=== PATIENT | female | born 1940 | race Caucasian/White ===

== ENCOUNTER 2016-11-09 17:20 | Inpatient (IN) | payer MEDICARE ==
[~2016-11-09] VITALS: Ht 167.6 cm; Wt 96.0 kg
[2016-11-09 18:36] LABS: BASOPHILS 0.2 % (0-2); EOSINOPHILS 1.6 % (0-7); HEMATOCRIT 36.2 % (36.0-48.0); HEMOGLOBIN 10.8 g/dL (12-16); IMMATURE GRANULOCYTES 0.3 % (0-5); LYMPHOCYTES 14.1 % (15-50); MCH 28.6 pg (26.0-34.0); MCHC 29.8 g/dL (31.0-37.0); MCV 95.8 fL (80.0-100.0); MEAN PLATELET VOLUME 11.4 fL (7.4-10.4); MONOCYTES 9.5 % (2-11); NEUTROPHILS 74.3 % (40-80); PLATELET COUNT 150 10x3/uL (130-400); RBC 3.78 10x6/uL (4.00-5.40); RDW 23.1 % (11.5-14.5); WBC 6.1 10x3/uL (4.8-10.8)
[2016-11-09 18:57] LABS: ALBUMIN 3.1 g/dL (3.4-5.0); ALKALINE PHOSPHATASE 154 U/L (46-116); ALT (SGPT) 15 U/L (10-68); BILIRUBIN - TOTAL 1.07 mg/dL (0.2-1.3); CALC OSMOLALITY 279 mosm/kg (275-300); CALCIUM 8.3 mg/dL (8.5-10.1); CARBON DIOXIDE 30.6 mmol/L (21.0-32.0); CHLORIDE - SERUM 101 mmol/L (98-107); CREATININE - SERUM 1.2 mg/dL (0.6-1.3); GLUCOSE 123 mg/dL (74-106); POTASSIUM - SERUM 3.6 mmol/L (3.5-5.1); PROTEIN - SERUM 7.6 g/dL (6.4-8.2); SODIUM 140 mmol/L (136-145); UREA NITROGEN 13 mg/dL (7-18); eGFR NON AFRICAN AMERICAN 46 mL/min (90-120)
[2016-11-09 19:11] LABS: CKMB 0.4 U/L (0.0-3.6); PRO BNP 6376 pg/mL (0-125)
[2016-11-09 19:15] LABS: TROPONIN-I < 0.017 ng/mL (0.000-0.060)
[2016-11-09 19:20] LABS: APPEARANCE CLEAR (CLEAR); BILIRUBIN NEGATIVE (NEGATIVE); COLOR YELLOW (YELLOW); GLUCOSE NEGATIVE (NEGATIVE); KETONE NEGATIVE (NEGATIVE); LEUKOCYTE ESTERASE NEGATIVE (NEGATIVE); NITRITE NEGATIVE (NEGATIVE); PROTEIN TRACE mg/dL (NEGATIVE); SPECIFIC GRAVITY 1.015 (1.005-1.020); UROBILINOGEN NORMAL (NORMAL)
[2016-11-09 19:28] LABS: APTT 34.7 SECONDS (22.8-39.4); INR 1.2 (0.85-1.17); PROTIME 15.1 SECONDS (11.6-15.0)
[2016-11-09 21:00] VITALS: BP 130/88
--- NOTE | 2016-11-09 21:05 | NUR ---
Received patient from ER via stretcher to 230. Patient connected to monitors and Dr Montana notified of arrival per his request. Initial assessment and history completed, denies pain or other needs at this time. All VSS and will continue to monitor.
[2016-11-09 21:20] VITALS: BP 133/82; BMI 37.2
[2016-11-09 21:30] VITALS: BP 133/82
[2016-11-09 22:00] VITALS: BP 131/80
[2016-11-09 23:00] VITALS: BP 133/82
--- NOTE | 2016-11-09 23:00 | NUR ---
Reassessment completed per flowsheet, patient resting in bed with eyes closed. Patient AO x4, poor historian but calm and cooperative. Eyes PERRLA @ 4mm with brisk response, patient wears glasses. Oral/Nasal mucosa is moist and intact, upper dentures noted. S1/S2 noted Controlled Afib on telemetry with HR 90, irregular. Breathing is shallow on 2L via NC, expiratory wheeze bilateral upper and mid with diminished lower. Bowel sounds active x4, abdomen is round and soft. Davis secured in place, clear yellow urine noted in collection. Slight weakness noted all extremities, all pulses palpable with cap refill <3 sec. 20g PIV L wrist/22g PIV R hand, dressing CDI with fluids infusing. Bruises noted bilateral arms/upper chest, skin tear noted R wrist. Patient denies pain or other needs at this time, all VSS and will continue to monitor.
[2016-11-09 23:30] VITALS: BP 129/70
[2016-11-10] VITALS (17 sets, daily range): BP systolic 99–142; BP diastolic 44–94; Ht 167.6 cm; Wt 96.0 kg
--- NOTE | 2016-11-10 01:00 | NUR ---
Patient resting in bed with eyes closed, breathing is slightly shallow on 2L via NC. Controlled afib on telemetry, no c/o chest pain or burning. No further needs at this time, all VSS and will continue to monitor.
[2016-11-10 01:43] LABS: APPEARANCE CLEAR (CLEAR); BILIRUBIN NEGATIVE (NEGATIVE); COLOR YELLOW (YELLOW); GLUCOSE NEGATIVE (NEGATIVE); KETONE NEGATIVE (NEGATIVE); LEUKOCYTE ESTERASE NEGATIVE (NEGATIVE); NITRITE NEGATIVE (NEGATIVE); PH 5.5 (5.0-6.0); PROTEIN NEGATIVE (NEGATIVE); UROBILINOGEN NORMAL (NORMAL)
[2016-11-10 01:51] LABS: AMORPHOUS SEDIMENT <1+ /lpf (NONE SEEN); BACTERIA FEW /hpf (NONE SEEN); EPITHELIAL CELLS OCC /hpf (0-5); HYALINE CAST OCC /lpf (NONE SEEN); RED CELLS - URINE 0-5 /hpf (0-5); WHITE CELLS - URINE OCC /hpf (0-5)
--- NOTE | 2016-11-10 03:00 | NUR ---
Reassessment completed per flowsheet, patient resting in bed with eyes closed. S1/S2 noted Controlled Afib on telemetry with HR 94, rhytmic and regular. Breathing is slightly shallow on 2L via NC, O2 sat 91%. All pulses palpable with cap refill <3 sec. No further needs at this time, all VSS and will continue to monitor.
[2016-11-10 03:44] LABS: BASOPHILS 0.2 % (0-2); EOSINOPHILS 1.2 % (0-7); HEMATOCRIT 32.9 % (36.0-48.0); HEMOGLOBIN 9.8 g/dL (12-16); IMMATURE GRANULOCYTES 0.2 % (0-5); LYMPHOCYTES 11.6 % (15-50); MCHC 29.8 g/dL (31.0-37.0); MCV 97.3 fL (80.0-100.0); MEAN PLATELET VOLUME 11.4 fL (7.4-10.4); MONOCYTES 10.6 % (2-11); NEUTROPHILS 76.2 % (40-80); PLATELET COUNT 153 10x3/uL (130-400); RBC 3.38 10x6/uL (4.00-5.40); RDW 23.2 % (11.5-14.5); WBC 5.9 10x3/uL (4.8-10.8)
[2016-11-10 03:53] LABS: HEMOGLOBIN A1C 6.1 % (4.8-6.0)
[2016-11-10 04:00] LABS: % SATURATION 11 % (15-55); IRON 41 ug/dl (35-150); TOTAL IRON BIND CAPACITY 355 ug/dl (260-445); UNSAT IRON BIND CAPACITY 314 ug/dl (150-375)
[2016-11-10 04:17] LABS: ALBUMIN 2.7 g/dL (3.4-5.0); ALKALINE PHOSPHATASE 126 U/L (46-116); ALT (SGPT) 17 U/L (10-68); CALC OSMOLALITY 280 mosm/kg (275-300); CALCIUM 7.9 mg/dL (8.5-10.1); CARBON DIOXIDE 36.3 mmol/L (21.0-32.0); CHLORIDE - SERUM 99 mmol/L (98-107); CHOL - HDL RATIO 3.3 ratio (2.3-4.1); CHOLESTEROL, TOTAL 130 mg/dL (0-200); FERRITIN 65 ng/mL (3-244); GLUCOSE 116 mg/dL (74-106); HDL CHOLESTEROL 39 mg/dL (32-96); LDL CHOLESTEROL 81 mg/dL (0-100); LDL-HDL RATIO 2.1 ratio (1.5-3.5); PRO BNP 6616 pg/mL (0-125); PROTEIN - SERUM 7.1 g/dL (6.4-8.2); SODIUM 141 mmol/L (136-145); THYROID STIMULATING HORMONE 5.13 uIU/mL (0.36-3.74); TRIGLYCERIDE 52 mg/dL (30-200); TROPONIN-I < 0.017 ng/mL (0.000-0.060); UREA NITROGEN 10 mg/dL (7-18); eGFR NON AFRICAN AMERICAN 57 mL/min (90-120)
[2016-11-10 04:19] LABS: POTASSIUM - SERUM 3.7 mmol/L (3.5-5.1)
--- NOTE | 2016-11-10 05:00 | NUR ---
Patient resting in bed with eyes closed, breathing remains slightly shallow on 2L via NC. Expiratory wheeze noted with diminished lower, O2 sat 91%. No further needs at this time, all VSS and will continue to monitor.
[2016-11-10] MEDS ORDERED: ASPIRIN EC81 M1 (06:40)
[2016-11-10] MEDS ORDERED: ELIQUIS2.5 MG (06:40)
[2016-11-10] MEDS ORDERED: FUROSEMIDE40 MG (06:41)
[2016-11-10] MEDS ORDERED: PLAVIX75 MG (06:41)
[2016-11-10] MEDS ORDERED: LEVOTHYROXINE150 MCG (06:41)
[2016-11-10] MEDS ORDERED: FERROUS SULFAT325 MG PO (06:42)
[2016-11-10] MEDS ORDERED: CARDURA4 MG PO (06:43)
[2016-11-10] MEDS ORDERED: TOPROL XL100 MG PO (06:43)
[2016-11-10] MEDS ORDERED: OMEPRAZOLE20 M1 PO (06:43)
[2016-11-10] MEDS ORDERED: CALAN SR240 MG PO (06:44)
[2016-11-10] MEDS ORDERED: ULTRAM50 MG PO (06:45)
[2016-11-10] MEDS ORDERED: LEVOTHYROXINE175 MCG PO (06:45)
[2016-11-10] MEDS ORDERED: PAXIL20 MG PO (06:45)
[2016-11-10] MEDS ORDERED: K-TAB10 MEQ PO (06:46)
[2016-11-10] MEDS ORDERED: LOTRISONE CREAM45 GM (06:46)
[2016-11-10] MEDS ORDERED: NAPROSYN500 MG PO (06:46)
--- NOTE | 2016-11-10 07:00 | NUR ---
PT AWAKE ALERT AND ORIENTED X4. PT OBEYS COMMANDS AND PRESENTS NO DEFICITS. DR LIRA CALLED AND DC SCDS DUE TO CELLULITS. 40 LOVENOX ORDERED. COMPLETE SHIFT ASSESSMENT DOCUMENTED PER FLOWSHEET. PT DENIES PAIN AT THIS TIME. EXPIRATORY WHEEZING NOTED IN UPPER LOBES BILAT AND RT MIDDLE LOBE, DIMINISHED IN LOWER LOBES BILAT. DRY CRACKING AND REDNESS NOTED IN BILAT LOWER EXTREMITIES, WARM TO TOUCH. WILL CONTINUE TO MONITOR CLOSELY
--- NOTE | 2016-11-10 09:00 | NUR ---
MANJIT WEBSTER APRN SAW PT AND RESUMED HOME MEDICATIONS FROM MED REC FOR AFIB. PER ORDER WILL DC CARDIZEM DRIP 2 HOURS AFTER PO MEDS GIVEN. WILL DC DRIP AND PT MAY BE TRANSFERRED TO PCU AFTER DRIP IS OFF AND PT IS STABLE.
--- NOTE | 2016-11-10 11:00 | NUR ---
PT COMPLAINS THAT SHE IS HOT. TEMP ADJUSTED IN ROOM. DENIES ANY FURTHER NEEDS AT THIS TIME. WILL CONTINUE TO MONTIOR PT CLOSELY.
--- NOTE | 2016-11-10 13:00 | NUR ---
PT COMPLAINING OF MILD LEG PAIN FROM CELLULITIS. DR LIRA CALLED AND ALLEN TO BE GIVEN PER ORDER. WILL CONTINUE TO DG
--- NOTE | 2016-11-10 14:35 | NUR ---
11/10/2016 14:31 DCP: Discharge Planning CM attempted to visit with patient to assess dc planning - patient sleeping, easily awakened, but quickly falls back asleep. No family present. CM will follow.
--- NOTE | 2016-11-10 15:00 | NUR ---
FAMILY AT BEDSIDE. UPDATE GIVEN. TRANSFER ORDERS TO [facility] 2. WILL WAIT FOR BED. VITAL SIGNS STABLE. REMAINS IN A FIB WITH CONTROLLED RATE OFF OF DRIP
--- NOTE | 2016-11-10 17:00 | NUR ---
PT TRANSFER TO [facility] 2 VIA BED ON 2L NC WITH BELONGINGS AND DINNER TRAY AT BEDSIDE. PT MOVED TO NEW BED. REPORT CALLED TO CHER MATOS.
--- NOTE | 2016-11-10 17:50 | NUR ---
ARRIVED FROM ICU VIA BED. MOVED OVER FROM ICU BED. WEIGHT IS 225.5 PT IS DROWSY AND DID NOT MOVE HERSELF OVER FROM BED. PHILLIPS IS DRAINING SMALL AMT OF CONCENTRATED URINE. 02 ON. IV KVO AND SWITCHED TO L HAND. R HAND PIV WAS PULLED OUT PT WAS MOVED TO BED. SOB WITH BOTH EXPIRATORY AND INSPIRATORY WHEEZING. NON PRODUCTIVE COUGH.
--- NOTE | 2016-11-10 19:53 | NUR ---
PT RECEIVED SITTING UP IN BED AAOX3 WITH FAMILY AT BEDSIDE. ASSESSMENT COMPLETED PER FLOW SHEET AT THIS TIME. PT DENIES NEEDS. BED LOW. PHONE AND CALL LIGHT IN REACH. SRX2.
--- NOTE | 2016-11-10 20:32 | NUR ---
PM MEDS GIVEN AT THIS TIME. PT RESTING QUIETLY. DENIES NEEDS. BED LOW. PHONE AND CALL LIGHT IN REACH. SRX2.
--- NOTE | 2016-11-10 23:47 | NUR ---
PT RESTING QUIETLY AT THIS TIME WITH EYES CLSOED. RESPIRATIONS EVEN, NON-LABORED. NO ACUTE DISTRESS NOTED AT THIS TIME. BED LOW. PHONE AND CALL LIGHT IN REACH SRX2.
[2016-11-11 01:28] VITALS: BP 152/88
--- NOTE | 2016-11-11 02:05 | NUR ---
PT RESTING QUIETLY AT THIS TIME WITH EYES CLOSED. RESPIRATIONS EVEN, NON-LABORED. NO ACUTE DISTRESS NOTED AT THIS TIME. BED LOW. PHONE AND CALL LIGHT IN REACH. SRX2.
[2016-11-11 04:34] VITALS: BP 134/79
--- NOTE | 2016-11-11 07:47 | NUR ---
AM ROUNDING DONE WITH NO COMPLAITNS PER PATIENT. ON HEART MONITOR SHWOING UCAF, HR 118. ON 2L PER NC. LEFT WRIST SEEN WITH NS INFUSING AT KVO, PHILLIPS CATH PATENT WITH YELLOW URINE. BED ALARM IS ON, CALL LIGHT IN USE. WILL ASSESS PAST BREAKFAST.
[2016-11-11 08:00] VITALS: BP 129/75
[2016-11-11 09:03] LABS: MAGNESIUM - SERUM 1.6 mg/dL (1.8-2.4); PHOSPHOROUS 3.6 mg/dL (2.5-4.9); POTASSIUM - SERUM 3.2 mmol/L (3.5-5.1)
[2016-11-11 09:20] LABS: VITAMIN D 25 HYDROXY 11.4 ng/mL (30.0-100.0)
[2016-11-11 12:00] VITALS: BP 125/61
--- NOTE | 2016-11-11 12:53 | EC ---
PATIENT:MATY DONALD DATE OF SERVICE: 11/09/16 SEX: F MEDICAL RECORD: [id number] DATE OF : 42 LOCATION:D.M2 D.210 AGE OF PATIENT: 76 ADMISSION DATE: 11/09/16 REFERRING PHYSICIAN: INTERPRETING PHYSICIAN: TAZ ORTIZ MD ECHOCARDIOGRAM REPORT ECHO CHARGES 4 ECHO COMPLETE CLINICAL DIAGNOSIS: CHF ECHOCARDIOGRAPHIC MEASUREMENTS (adult normal given) AC root (d.<3.7cm) 3.2 LV Septum d (<1.2 cm> 1.1 Valve Excursion 1.2 LV Septum (systole) 1.3 Left Atria (s.<4.0cm> 3.8 LVPW d(<1.2cm) 1.2 RV (d.<2.3cm) 4.1 LVPW (sytole) 1.6 LV diastole(<5.6CM) 5.0 MV E-F(>70mm/sec) LV systole 3.0 LVOT Diameter 1.2 MV exc.(>10mm) 1.5 Est.ejection fraction (50-75%) Pericardial Effusion N DOPPLER: LVIT A E 79.0 LA RVSP 46 LVOT 97 AOP1/2T Asc. Ao 184 RVOT 89 RA PA 129 AV Gradient Peak 13.61 AV Mean 8.19 AV Area 1.1 MV Gradient Peak 13.79 MV Mean 5.43 MV Area COMMENTS: Corporate Strategy Analyst: Mela AGUILLON Highway Construction Inspector:Christa Thornton TAPE# PACS DATE OF SERVICE: 11/10/2016 Adequate 2D echo, color flow and spectral Doppler, and M-mode. No LVH. LV internal dimensions are normal. Wall motion is normal. EF is greater than 55%. Aortic valve sclerosis without stenosis by Doppler interrogation. The left atrium is normal at 3.8 cm. Mitral valve shows no prolapse. Trace MR. Right-sided chambers normal. Trace TR. TRANSINT:[id number] Voice Confirmation ID: [id number] DOCUMENT ID: [id number] ECHOCARDIOGRAM REPORT [id number] MATY DONALD TAZ ORTIZ MD at 1253 CC: [id number] DICTATION DATE: 11/10/16 1315 CHICK SEXER: 11/10/16 2238 ADM IN [place] [id number] [facility] [place] [address]
[2016-11-11 16:00] VITALS: BP 114/73
--- NOTE | 2016-11-11 17:17 | NUR ---
Patient was sleeping but her daughter was at the bedside. The daughter is Donnie Schmitt with contact phone number [phone]. The patient's dinner just arrived and dtr would like to assist while the food is hot. CM to revisit.
--- NOTE | 2016-11-11 19:02 | NUR ---
PT RECEIVED LYING IN BED AAOX3. ASSESSMENT COMPLETED PER FLOW SHEET AT THIS TIME. PT DENIES NEEDS. BED LOW. PHONE AND CALL LIGHT IN REACH. SRX2.
[2016-11-11 19:41] VITALS: BP 127/95
--- NOTE | 2016-11-11 22:41 | NUR ---
PM MEDS GIVEN AT THIS TIME. PT REQUESTS CUP OF ICE, ICE WATER, PILLOW, AND BLANKET. DENIES OTHER NEEDS. BED LOW. PHONE AND CALL LIGHT IN REACH. SRX2.
--- NOTE | 2016-11-11 23:43 | NUR ---
PT RESTING WELL WITHOUT C/O OR DISTRESS NOTED. NO CHANGES NOTED IN ASSESSMENT. CALL LIGHT WITHIN REACH. WILL CONT TO MONITOR.
[2016-11-12 00:59] VITALS: BP 128/59
--- NOTE | 2016-11-12 02:09 | NUR ---
PT RESTING QUIETLY WITH EYES CLOSED AT THIS TIME. RESPIRATIONS EVEN, NON-LABORED NO ACUTE DISTRESS NOTED AT THIS TIME. BED LOW. PHONE AND CALL LIGHT IN REACH. SRX2.
--- NOTE | 2016-11-12 04:16 | NUR ---
PT IN BED, WITH EYES CLOSED, BED LOW AND LOCKED, BED RAILS X2, CALL LIGHT IN REACH, FAMILY AT BEDSIDE, NAD NOTED, WILL CONTINUE TO MONITOR.
[2016-11-12 06:04] LABS: MAGNESIUM - SERUM 1.6 mg/dL (1.8-2.4); PHOSPHOROUS 3.6 mg/dL (2.5-4.9)
[2016-11-12 06:06] LABS: POTASSIUM - SERUM 2.9 mmol/L (3.5-5.1)
--- NOTE | 2016-11-12 07:33 | NUR ---
0700-AWAKE, DRINKING COFFEE. SITTER AT BEDSIDE. DENIES NEEDS AT PRESENT TIME. ON 2L PER NC WITH HUM. O2. PHILLIPS CATH PATENT WITH DARK YELLOW URINE. ON HEART MONITOR SHOWINGUCAF, HR 113. LEFT HAND SEEN WITH SALINE LOCK. ON EP, COVERING WITH SUPPLEMENTS. K+ 2.9, MAG 1.6. BED ALARM IN USE.
[2016-11-12 07:52] VITALS: BP 133/67
[2016-11-12 11:44] VITALS: BP 122/56
[2016-11-12 15:29] LABS: BASOPHILS 0.3 % (0-2); EOSINOPHILS 2.1 % (0-7); HEMOGLOBIN 9.9 g/dL (12-16); IMMATURE GRANULOCYTES 0.3 % (0-5); LYMPHOCYTES 14.3 % (15-50); MCH 28.2 pg (26.0-34.0); MCHC 28.3 g/dL (31.0-37.0); MCV 99.7 fL (80.0-100.0); MEAN PLATELET VOLUME 10.2 fL (7.4-10.4); MONOCYTES 10.4 % (2-11); NEUTROPHILS 72.6 % (40-80); PLATELET COUNT 181 10x3/uL (130-400); RBC 3.51 10x6/uL (4.00-5.40); RDW 22.2 % (11.5-14.5); WBC 6.2 10x3/uL (4.8-10.8)
[2016-11-12 15:44] LABS: ANION GAP 4.1 mmol/L (8-16); CALCIUM 7.2 mg/dL (8.5-10.1); CREATININE - SERUM 1.3 mg/dL (0.6-1.3); POTASSIUM - SERUM 3.6 mmol/L (3.5-5.1)
[2016-11-12 15:45] LABS: CARBON DIOXIDE 43.5 mmol/L (21.0-32.0)
--- NOTE | 2016-11-12 15:48 | NUR ---
RE-CHECKED POTASSIUM WITH RESULT OF 3.6. CRITICAL CO2 IS 43.5, CALLED YARI BOYCE WITH THESE RESULTS. NO NEW TELEPHONE ORDERS.
[2016-11-12 16:00] VITALS: BP 113/53
--- NOTE | 2016-11-12 17:39 | NUR ---
PATIENT STILL WITH SOME SLIGHT WHEEZES, ENCOURGED TO COUGH
--- NOTE | 2016-11-12 19:10 | NUR ---
AWAKE TALKING TO VISITORS PRESENT IN ROOM. DENIES PAIN OR ANY NEEDS. HAS 02 AT 2L/NC. RR 16 SHALLOW. WAREHOUSE ASSOCIATE SHOWS 106 UCAFIB. ORIENTED TO CALL LIGHT FOR ANY NEEDS.
[2016-11-12 21:00] VITALS: BP 133/76
--- NOTE | 2016-11-12 22:10 | NUR ---
ADMIN SCHED MEDS. DENIES PAIN OR ANY NEEDS. FLUSHED LEFT HAND IV. .
--- NOTE | 2016-11-13 03:30 | NUR ---
REC RESP UPDRAFT TX. WATCHING TV. REQUESTED ASSISTANCE ADJ SOUND.
[2016-11-13 04:00] VITALS: BP 122/73
[2016-11-13 05:06] LABS: BASOPHILS 0.2 % (0-2); EOSINOPHILS 1.7 % (0-7); HEMATOCRIT 35.4 % (36.0-48.0); HEMOGLOBIN 10.1 g/dL (12-16); IMMATURE GRANULOCYTES 0.2 % (0-5); LYMPHOCYTES 11.8 % (15-50); MCH 28.5 pg (26.0-34.0); MCHC 28.5 g/dL (31.0-37.0); MCV 99.7 fL (80.0-100.0); MEAN PLATELET VOLUME 10.5 fL (7.4-10.4); MONOCYTES 14.9 % (2-11); NEUTROPHILS 71.2 % (40-80); PLATELET COUNT 183 10x3/uL (130-400); RBC 3.55 10x6/uL (4.00-5.40); RDW 21.9 % (11.5-14.5); WBC 5.8 10x3/uL (4.8-10.8)
[2016-11-13 05:20] LABS: ANION GAP 5.3 mmol/L (8-16); CALCIUM 7.6 mg/dL (8.5-10.1); CREATININE - SERUM 1.1 mg/dL (0.6-1.3); POTASSIUM - SERUM 3.5 mmol/L (3.5-5.1)
[2016-11-13 05:21] LABS: CARBON DIOXIDE 43.2 mmol/L (21.0-32.0)
--- NOTE | 2016-11-13 05:30 | NUR ---
AWAKE. DENIES ANY NEEDS OR DISCOMFORTS. FAMILY MEMBER PRESENT IN ROOM.
--- NOTE | 2016-11-13 07:44 | NUR ---
0715-ROUNDING DONE WITH PATIENT LAYING ON LEFT SIDE, HOB AT 30 DEGREES, PILLOW BEHIND BACK. ON 2L WITH HUM. ON HEART MONITOR SHOWING UCAF, HR 132. LEFT HAND SALINE LOCK. PHILLIPS CATH PATENT WITH CONCENTRATED URINE. ON EP, LAB VALUES ARE WNL. BED ALARM IS SET. BILATERAL WHEEZES HEARD THROUGHOUT LUNG FILEDS. BILATERAL LOWER LEGS SEEN WITH 2-3+ EDEMA AND SLIGHT REDNESS. WILL MONITOR. 0745-O2 SAT IS 84%, INCREASED O2 TO 5L PER NC, RESP IS CALLED. KRISTEN IS HERE CHECKING PATIENT.
[2016-11-13 07:45] LABS: MAGNESIUM - SERUM 1.7 mg/dL (1.8-2.4)
[2016-11-13 08:00] VITALS: BP 110/61
--- NOTE | 2016-11-13 08:04 | NUR ---
KRISTEN WITH RT PLACED PATIENT ON 10L OXIMIZER TO GET SATS TO 93%, ALSO GAVE HER A FLUTTER VALUE TO WORK WITH.
[2016-11-13 11:45] VITALS: BP 106/58
[2016-11-13 15:56] VITALS: BP 116/71
--- NOTE | 2016-11-13 18:17 | NUR ---
RESTING WATCHING TV WITH FAMILY MEMBER AT SIDE. STILL ON 10L OXIMIZER. DENIES NEEDS AT PRESENT.
--- NOTE | 2016-11-13 19:22 | NUR ---
REC UPDRAFT TX. HAS GARBLED SPEECH. DAUGHTER IS PRESENT IN ROOM. STATED MD SAID THIS IS DUE TO HER HIGH CO2. OXYGEN ON AT 10L/OXIMIZER. IV IN L HAND INTACT SL. PRODUCTION CREW SUPERVISOR SHOWS 76 CAFIB. PHILLIPS INTACT, DRAINING YELLOW URINE. WILL CONT PLAN OF CARE.
[2016-11-13 21:30] VITALS: BP 142/78
[2016-11-14 00:55] VITALS: BP 137/77
[2016-11-14 07:04] LABS: BASOPHILS 0.2 % (0-2); EOSINOPHILS 1.5 % (0-7); HEMATOCRIT 35.5 % (36.0-48.0); HEMOGLOBIN 10.2 g/dL (12-16); IMMATURE GRANULOCYTES 0.4 % (0-5); LYMPHOCYTES 12.6 % (15-50); MCH 28.3 pg (26.0-34.0); MCHC 28.7 g/dL (31.0-37.0); MCV 98.6 fL (80.0-100.0); MEAN PLATELET VOLUME 10.6 fL (7.4-10.4); MONOCYTES 14.3 % (2-11); PLATELET COUNT 186 10x3/uL (130-400); RDW 21.5 % (11.5-14.5); WBC 5.3 10x3/uL (4.8-10.8)
[2016-11-14 07:22] LABS: ANION GAP 2.5 mmol/L (8-16); CREATININE - SERUM 1.1 mg/dL (0.6-1.3); POTASSIUM - SERUM 3.6 mmol/L (3.5-5.1)
[2016-11-14 07:30] LABS: CARBON DIOXIDE 45.1 mmol/L (21.0-32.0)
[2016-11-14 08:22] VITALS: BP 132/70
[2016-11-14 11:47] VITALS: BP 130/60
[2016-11-14 16:00] VITALS: BP 96/75
--- NOTE | 2016-11-14 19:42 | NUR ---
RECEIVED REPORT, PT VISITING WITH FAMILY, BED IS LOW, SRX2, CALL LIGHT IN REACH, WILL CONTINUE PLAN OF CARE
[2016-11-14 20:16] VITALS: BP 126/66
[2016-11-15 00:15] VITALS: BP 113/61
--- NOTE | 2016-11-15 02:59 | NUR ---
ASSESSMENT COMPLETE, SEE FLOWSHEET, PT SLEEPING, NO DISTRESS NOTICE, BED IS LOW, SRX2, FAMILY AT BEDSIDE, CALL LIGHT IN REACH
[2016-11-15 05:55] LABS: BASOPHILS 0.2 % (0-2); EOSINOPHILS 2.1 % (0-7); HEMATOCRIT 35.5 % (36.0-48.0); HEMOGLOBIN 10.3 g/dL (12-16); IMMATURE GRANULOCYTES 0.2 % (0-5); LYMPHOCYTES 17.2 % (15-50); MCH 28.8 pg (26.0-34.0); MCV 99.2 fL (80.0-100.0); MEAN PLATELET VOLUME 11.1 fL (7.4-10.4); NEUTROPHILS 67.3 % (40-80); PLATELET COUNT 200 10x3/uL (130-400); RBC 3.58 10x6/uL (4.00-5.40); RDW 21.4 % (11.5-14.5); WBC 4.7 10x3/uL (4.8-10.8)
[2016-11-15 06:15] LABS: CALCIUM 8.3 mg/dL (8.5-10.1); CREATININE - SERUM 1.1 mg/dL (0.6-1.3)
--- NOTE | 2016-11-15 07:00 | NUR ---
RECEIVED REPORT. ASSUMED CARE OF PATIENT. CALL LIGHT WITHIN REACH. RESTING WITH EYES CLOSED. EASILY AROUSED. RESP EVEN AND UNLABORED. FEMALE VISITORS AT BEDSIDE. NO DISTRESS.
[2016-11-15 07:07] LABS: ANION GAP 5.2 mmol/L (8-16)
[2016-11-15 07:08] LABS: CARBON DIOXIDE 43.7 mmol/L (21.0-32.0); POTASSIUM - SERUM 2.9 mmol/L (3.5-5.1)
[2016-11-15 07:57] VITALS: BP 117/81
--- NOTE | 2016-11-15 11:40 | NUR ---
PT SITTING UP IN CHAIR RESTING COMFORTABLY. PROVIDED PT WITH HER SCHEDULED LASIX VIA L.HAND PIV. SITE FLUSHED WITHOUT ANY DIFFICULTIES, DRSG CDI AND SWAB CAPS IN USE. PTS URINE CONCENTRATED ENCOURAGED HER TO DRINK FLUIDS AND STAY HYDRATED WITH ALL THE DIURETICS SHE IS RECIEVING. FAMILY AT BEDSIDE, CL IN REACH. WILL CPOC.
--- NOTE | 2016-11-15 11:54 | NUR ---
SITTING UP IN CHAIR. NO DISTRESS.
--- NOTE | 2016-11-15 14:23 | NUR ---
Nutrition follow-up: Diet: low sodium PO intake 25-50% of meals labs reviewed Wt: 213# PO intake decreased due to breathing issuses. RDN will order Ensure BID. Following.
[2016-11-15 17:54] VITALS: BP 110/70
--- NOTE | 2016-11-15 19:30 | NUR ---
RECEIVED REPORT, PT SLILL EATING, DENIES ANY NEEDS, BED IS LOW, SRX2, CALL LIGHT IN REACH, WILL CONTINUE PLAN OF CARE
[2016-11-15 19:55] VITALS: BP 109/49; BP 136/60
[2016-11-16 00:48] VITALS: BP 103/88; BP 122/70
--- NOTE | 2016-11-16 01:58 | NUR ---
ASSESSMENT COMPLETE, SEE FLOWSHEET, PT SLEEPING NO DISTRESS NOTICED, BED IS LOW, SRX2, BED ALARM IS ON, CALL LIGHT IN REACH, WILL CONTINUE TO MONITOR
[2016-11-16 04:27] LABS: BASOPHILS 0 % (0-2); EOSINOPHILS 0 % (0-7); HEMATOCRIT 35.7 % (36.0-48.0); HEMOGLOBIN 10.3 g/dL (12-16); IMMATURE GRANULOCYTES 0.2 % (0-5); LYMPHOCYTES 8.8 % (15-50); MCH 28.5 pg (26.0-34.0); MCHC 28.9 g/dL (31.0-37.0); MCV 98.9 fL (80.0-100.0); MONOCYTES 1.9 % (2-11); NEUTROPHILS 89.1 % (40-80); PLATELET COUNT 204 10x3/uL (130-400); RBC 3.61 10x6/uL (4.00-5.40); RDW 21.1 % (11.5-14.5); WBC 4.3 10x3/uL (4.8-10.8)
[2016-11-16 04:52] VITALS: BP 141/75
[2016-11-16 04:56] LABS: CALCIUM 8.4 mg/dL (8.5-10.1); CREATININE - SERUM 1.1 mg/dL (0.6-1.3)
[2016-11-16 04:57] LABS: ANION GAP 3.5 mmol/L (8-16)
[2016-11-16 04:58] LABS: CARBON DIOXIDE 43.5 mmol/L (21.0-32.0)
[2016-11-16 05:38] LABS: ERYTHROCYTE SEDIMENTATION RATE 76 mm/hr (0-30)
--- NOTE | 2016-11-16 07:24 | NUR ---
AM ROUNDS - PT IS AWAKE ALERT. BED IN LOWEST POSITION, SIDE RAILS UP X2, CALL NAZARIO IN USE/REACH. PT HAS A YELLOW BAND ON, BLUE SOCKS ON. ALAN DATED FOR 11/09, DRAINING CLEAR YELLOW. O2 IS CURRENTLY AT 8L VIA OXIMIZER. MONITOR SHOWING CONTROLLED AFIB, HR 82. LEFT HAND, SL. NO FUTHER NEEDS AT THIS TIME. WILL CONTINUE TO MONITOR
[2016-11-16 08:57] VITALS: BP 138/68
--- NOTE | 2016-11-16 10:48 | NUR ---
Patient Name: MATY DONALD Admission Status: ER Accout number: [id number] Admission Date: 11-09-2016 : 1940 Admission Diagnosis:HEART FAILURE, UNSPECIFIED Attending: PAULINO Current LOS: 7 Anticipated DC Date: TO BE DETERMINED Planned Disposition: Home Primary Insurance: MEDICARE A & B Discharge Planning Comments: * Is the patient Alert and Oriented? Yes 0 * How many steps to enter\exit or inside your home? 1-O / 1-I 0 * PCP DR. CELINE SINGH, [place] [facility] 0 * [facility]acy [facility] * Preadmission Environment Home Alone 0 * ADLs Independent 0 * Equipment Cane Oxygen Walker 0 * Other Equipment UNKNOWN MEDICAL EQUIPMENT PROVIDER 0 * List name and contact numbers for known caregivers / representatives who currently or will assist patient after discharge: RICK CHACON, SISTER, ERLINDA HUNTER, DTR, 0 * Community resources currently utilized None 0 * Please name any agencies selected above. NONE 0 * Additional services required to return to the preadmission environment? Yes * Can the patient safely return to the preadmission environment? Yes 0 * Has this patient been hospitalized within the prior 30 days at any hospital? No 0 CM MET WITH PT IN ROOM TO DISCUSS DISCHARGE PLANNING AND NEEDS. PT REPORTS LIVING AT HOME INDEPENDENTLY AND ALONE. PT REPORTS IF SHE NEEDS HELP AT HOME, HER FAMILY, TWO SISTERS AND DAUGHTER, CAN ASSIST. PT HAS HOME AND PORTABLE OXYGEN, WALKER AND CANE; PT CANNOT REMEMBER THE NAME OF HER OXYGEN COMPANY. PT HAS NO OUTSIDE SERVICES ASSISTING IN THE HOME. CM DISCUSSED AVAILABILITY OF HOME HEALTH, REHAB SERVICES AND MEDICAL EQUIPMENT. PT REPORTS UNKNOWN DISCHARGE NEEDS, MAY ACCEPT HOME HEALTH IF SHE DOES NOT HAVE TO PAY FOR IT AND WILL DISCUSS THIS WITH FAMILY. PT REPORTS HER DAUGHTER WILL PICK HER UP FOR DISCHARGE HOME. PT REPORTS PLAN TO DISCHARGE HOME ALONE, IS CONSIDERING HOME HEALTH. Roofing Plant Supervisor: Kyle Valle
[2016-11-16 12:00] VITALS: BP 117/57
--- NOTE | 2016-11-16 12:30 | NUR ---
Rehab Note- Acute Rehab Prescreen order received. Visited with the patient, sitting up eating lnch with her oximized oxygen on the bridge of her nose. The patient is interested in [facility] IRF stay when medically ready for discharge from the acute hospital. Spoke to TANMAY Issa. Will accept the patient when ready for discharge from the acute hospital. Thank you for this referral! Marissa Alonso RN Clinical Liaison, [facility] Rehab
[2016-11-16 16:00] VITALS: BP 111/57
--- NOTE | 2016-11-16 19:30 | NUR ---
RECEIVED REPORT, ASSUMED CARE OF PT, PT SLEEPING, BED IS LOW, SRX2, BED ALARM IS ON, CALL LIGHT IN REACH, WILL CONTINUE PLAN OF CARE
[2016-11-16 20:00] VITALS: BP 127/71
[2016-11-17] VITALS: BP 144/84
--- NOTE | 2016-11-17 03:53 | NUR ---
ASSESSMENT COMPLETE, SEE FLOWSHEET, PT SLEEPING ON R.SIDE, BED IS LOW, SRX2, BED ALARM ON, CALL LIGHT IN REACH, WILL CONTINUE PLAN OF CARE
[2016-11-17 05:08] LABS: BASOPHILS 0 % (0-2); EOSINOPHILS 0 % (0-7); HEMOGLOBIN 10.3 g/dL (12-16); IMMATURE GRANULOCYTES 0.2 % (0-5); LYMPHOCYTES 5.7 % (15-50); MCH 28.9 pg (26.0-34.0); MCHC 29.4 g/dL (31.0-37.0); MEAN PLATELET VOLUME 11.2 fL (7.4-10.4); MONOCYTES 2.2 % (2-11); NEUTROPHILS 91.9 % (40-80); PLATELET COUNT 220 10x3/uL (130-400); RBC 3.57 10x6/uL (4.00-5.40); RDW 21.4 % (11.5-14.5)
[2016-11-17 05:09] LABS: WBC 8.1 10x3/uL (4.8-10.8)
[2016-11-17 05:26] LABS: ANION GAP 6.4 mmol/L (8-16); CALCIUM 8.2 mg/dL (8.5-10.1); PHOSPHOROUS 3.9 mg/dL (2.5-4.9); POTASSIUM - SERUM 3.6 mmol/L (3.5-5.1)
[2016-11-17 05:35] LABS: CARBON DIOXIDE 41.2 mmol/L (21.0-32.0); CREATININE - SERUM 1.4 mg/dL (0.6-1.3)
--- NOTE | 2016-11-17 07:20 | NUR ---
AM ROUNDS - PT IS AWAKE IN BED RECIEVING A BREATHING TX. PT ON 8L VIA OXIMIZER. CALL NAZARIO IN USE/REACH, SIDE RAILS UP X2, BED AT LOWEST POSITION. YELLOW BAND ON. ALAN DATESED FOR 11/09 DRAINING A CLEAR YELLOW. PT IS UP WITH ASSIST. PT STATES THAT SHE IS 9/10 PAIN IN HER RIGHT KNEE. WILL CHECK ON PAIN MEDS. WILL CONTINUE TO MONITOR
[2016-11-17 08:00] VITALS: BP 164/96
[2016-11-17 08:20] LABS: IMMUNOGLOBULIN E 380 IU/mL (0-100)
--- NOTE | 2016-11-17 11:36 | NUR ---
Patient Name: MATY DONALD Encounter No: [id number] : 1940 Primary Insurance: MEDICARE A & B Anticipated DC Date: 11-18-2016 Planned Disposition: INPATIENT REHAB External Planned Provider: [facility] INPATIENT REHAB DCP follow-up note: CM RECEIVED REQUEST TO MEET WITH PT AND SON IN ROOM. PT'S SON ASKED ABOUT REHAB OPTIONS; CM DISCUSSED HOME HEALTH, INPATIENT REHAB AND LONG TERM REHAB. PT AND FAMILY ARE NOT OPPOSED TO INPATIENT REHAB AT [place] BUT WILL BE DISCUSSING POSSIBLY GOING TO [place] FOR LONG TERM REHAB IT IS CLOSER TO FAMILY. PT AND FAMILY IS NOT READY TO MAKE LONG TERM REHAB CHOICE AT THIS TIME; CM LEFT CM CONTACT INFORMATION AND CHOICE FORM, FAMILY NOT WANTING TO STOP INPATINENT REHAB SCREENING AT THIS TIME. IMPORTANT MESSAGE FROM MEDICARE PROVIDED AND DISCUSSED. CM WAITING FAMILY DECISION REGARDING LONG TERM FACILITY IN [place] FOR REHAB AND INPATIENT REHAB PRESCREENING COMPLETION/ADMISSION DETERMINATION. Kyle Valle, CASE MANAGEMENT
[2016-11-17 12:17] VITALS: BP 137/77
[2016-11-17 16:36] VITALS: BP 110/58
[2016-11-17 19:00] VITALS: BP 144/75
--- NOTE | 2016-11-17 19:20 | NUR ---
RECEIVED REPORT, PT IS ALERT AND OREINTATED, DENIES ANY NEEDS, BED IS LOW, SRX2, BED ALARM IS ON, WILL CONTINUE PLAN OF CARE
[2016-11-18] VITALS: BP 136/80
--- NOTE | 2016-11-18 01:01 | NUR ---
CALL LIGHT IN REACH, WILL CONTINUE WITH PLAN OF CARE.
[2016-11-18 04:00] VITALS: BP 156/88
[2016-11-18 05:51] LABS: BASOPHILS 0 % (0-2); EOSINOPHILS 0 % (0-7); HEMATOCRIT 36.5 % (36.0-48.0); HEMOGLOBIN 10.9 g/dL (12-16); IMMATURE GRANULOCYTES 0.3 % (0-5); LYMPHOCYTES 5.7 % (15-50); MCH 28.8 pg (26.0-34.0); MCHC 29.9 g/dL (31.0-37.0); MCV 96.3 fL (80.0-100.0); MEAN PLATELET VOLUME 11.1 fL (7.4-10.4); MONOCYTES 2.6 % (2-11); NEUTROPHILS 91.4 % (40-80); PLATELET COUNT 234 10x3/uL (130-400); RBC 3.79 10x6/uL (4.00-5.40); RDW 20.9 % (11.5-14.5); WBC 7.3 10x3/uL (4.8-10.8)
[2016-11-18 05:58] LABS: CALCIUM 8.3 mg/dL (8.5-10.1); CARBON DIOXIDE 39.3 mmol/L (21.0-32.0); CREATININE - SERUM 1.4 mg/dL (0.6-1.3); MAGNESIUM - SERUM 2.1 mg/dL (1.8-2.4); PHOSPHOROUS 4.4 mg/dL (2.5-4.9); POTASSIUM - SERUM 3.3 mmol/L (3.5-5.1)
--- NOTE | 2016-11-18 07:20 | NUR ---
SHOFT ROUNDS - PT IS SITTING UP IN CHAIR RECIEVING A BREATHING TREATMENT. PT IS ON 8L O2 VIA OXIMIZER. MONITOR SHOWING CONT AFIB, HR 97. CALL NAZARIO IN USE/REACH. PT HAS A HELLOW ARM BAND ON. ALAN DATED FOR 11/09 DRAINING CLEAR YELLOW. IV TO LEFT HAND, SL. NO NEEDS AT THIS TIME. WILL CONTINUE TO MONITOR
[2016-11-18 08:11] VITALS: BP 154/92
--- NOTE | 2016-11-18 10:35 | NUR ---
Reviewed this patient's chart for the IRF this AM. She continues to be a good rehab candidate when she is medically stable and her 02 can be titrated down. Rehab will continue to follow. Giselle Wray RN Clinical Liaison, Rehab
[2016-11-18 12:08] VITALS: BP 145/91
[2016-11-18 13:16] LABS: ANA REFLEX - ANTICHROMATIN ABS <0.2 AI (0.0-0.9); ANA REFLEX - CENTROMERE B ABS <0.2 AI (0.0-0.9); ANA REFLEX - DBL STRANDED DNA 13 IU/mL (0-9); ANA REFLEX - DIRECT Positive (Negative); ANA REFLEX - JO-1 AB <0.2 AI (0.0-0.9); ANA REFLEX - RNP ANTIBODIES <0.2 AI (0.0-0.9); ANA REFLEX - SCL-70 <0.2 AI (0.0-0.9); ANA REFLEX - SJOGRENS AB SSA <0.2 AI (0.0-0.9); ANA REFLEX - SJOGRENS AB SSB <0.2 AI (0.0-0.9); ANA REFLEX - SMITH AB 0.3 AI (0.0-0.9)
--- NOTE | 2016-11-18 13:35 | NUR ---
Nutrition Follow Up: Pt is eating 75% meal avg on an AHA mech soft diet. Wt stable. No BM since admit. Meds noted including Prednisone. Labs reviewed - Glucose elevated. Rec continue current diet. If glucose continues elevated may need to change diet to NCS. RD will continue to monitor pt progress.
[2016-11-18 15:17] VITALS: BP 123/61
--- NOTE | 2016-11-18 18:38 | NUR ---
PT APPEARS TO BE SLEEPING WITH EQUAL AND NON LABORED BREATHING. WILL CONTINUE OT MONITOR
[2016-11-18 19:00] VITALS: BP 128/77
--- NOTE | 2016-11-18 19:49 | NUR ---
RECEIVED REPORT, WILL ASSUME CARE OF PT, PT DENIES ANY NEEDS AT THIS TIME, BED IS LOW, SRX2, BED ALARM IS ON, WILL CONTINUE PLAN OF CARE
--- NOTE | 2016-11-18 20:28 | NUR ---
GAVE NORCO 10- PRE REQUEST OF PT, WILL CONTINUE TO MONITOR
[2016-11-19] VITALS: BP 150/91
--- NOTE | 2016-11-19 03:59 | NUR ---
ASSESSMENT COMPLETE, SEE FLOWSHEET, PT SLEEPING, BED IS LOW, SRX2, BED ALARM IS ON, CALL LIGHT IN REACH, WILL CONTINUE PLAN OF CARE
[2016-11-19 06:37] LABS: BASOPHILS 0 % (0-2); EOSINOPHILS 0 % (0-7); HEMATOCRIT 37.3 % (36.0-48.0); HEMOGLOBIN 11.1 g/dL (12-16); IMMATURE GRANULOCYTES 0.4 % (0-5); LYMPHOCYTES 10.4 % (15-50); MCH 28.5 pg (26.0-34.0); MCHC 29.8 g/dL (31.0-37.0); MCV 95.9 fL (80.0-100.0); MEAN PLATELET VOLUME 11.3 fL (7.4-10.4); MONOCYTES 8.6 % (2-11); NEUTROPHILS 80.6 % (40-80); PLATELET COUNT 252 10x3/uL (130-400); RBC 3.89 10x6/uL (4.00-5.40); RDW 20.4 % (11.5-14.5); WBC 7.6 10x3/uL (4.8-10.8)
[2016-11-19 06:59] LABS: ANION GAP 9.4 mmol/L (8-16); CARBON DIOXIDE 36.7 mmol/L (21.0-32.0); CREATININE - SERUM 1.5 mg/dL (0.6-1.3); POTASSIUM - SERUM 3.1 mmol/L (3.5-5.1)
[2016-11-19 08:00] VITALS: BP 160/98
--- NOTE | 2016-11-19 08:07 | NUR ---
SHIFT ASSESSMENT COMPLETE. RESTING QUIETLY IN BED. LUNG SOUNDS ASCULTATED. RECEIVING BREATHING TREATMENT. NO NEEDS OR CONCERNS AT THIS TIME. DENIES PAIN. BED IN LOWEST POSITION. CALL LIGHT IN REACH. WILL CONTINUE TO MONITOR.
--- NOTE | 2016-11-19 10:00 | NUR ---
PATIENT POTASSIUM 3.1. INITIATE ELECTROLYTE PROTOCOL. POTASSIUM CHLORIDE 10 MEQ GIVEN IV. NO C/O PAIN OR DISCOMFORT. WILL MONITOR.
--- NOTE | 2016-11-19 11:36 | NUR ---
PATIENT RECEIVED SECOND DOSE OF POTASSIUM IV PER ELECTROLYTE PROTOCOL. NO C/O PAIN OR DISCOMFORT. NO DISTRESS NOTED. WILL MONITOR.
--- NOTE | 2016-11-19 14:16 | NUR ---
PATIENT RECIEVED THIRD DOSE POTASSIUM IV PER ELECTROLYTE PROTOCOL. NO DISTRESS NOTED. WILL CONTINUE TO MONITOR.
--- NOTE | 2016-11-19 15:45 | NUR ---
PATIENT RECEIVED FOURTH DOSE OF POTASSIUM IV PER ELECTROLYTE PROTOCOL. NO DISTRESS NOTED. ORDER PLACED FOR POTASSIUM TO BE DRAWN 2 HOUR POST TRANSFUSION. WILL MONITOR.
[2016-11-19 16:24] VITALS: BP 156/81
[2016-11-19 19:00] VITALS: BP 158/94
--- NOTE | 2016-11-19 20:12 | NUR ---
PT AWAKE, ALERT, ORIENTED, MILDLY HARD OF HEARING, DENIES PAIN OR ANY OTHER NEEDS AT THIS TIME. CONTINUE TO MONITOR CLOSELY. BED LOW, CALL LIGHT IN REACH, SIDE RAILS X 2, HOB 20 DEGREES.
[2016-11-20] VITALS: BP 141/84
--- NOTE | 2016-11-20 00:20 | NUR ---
PT LYING IN BED, AWAKE, ALERT, ORIENTED, DENIES ANY NEEDS AT THIS TIME. CONTINUE TO MONITOR CLOSELY.
[2016-11-20 04:00] VITALS: BP 165/91
--- NOTE | 2016-11-20 05:26 | NUR ---
PT AWAKE, ALERT, ORIENTED, LOOKING AT TV, DENIES ANY NEEDS AT THIS TIME. CONTINUE TO MONITOR CLOSELY. BED LOW, CALL LIGHT IN REACH, SIDE RAILS X 2, HOB 20 DEGREES.
[2016-11-20 06:26] LABS: BASOPHILS 0 % (0-2); EOSINOPHILS 0 % (0-7); HEMATOCRIT 37.1 % (36.0-48.0); HEMOGLOBIN 11.1 g/dL (12-16); IMMATURE GRANULOCYTES 0.3 % (0-5); LYMPHOCYTES 10.2 % (15-50); MCH 28.4 pg (26.0-34.0); MCHC 29.9 g/dL (31.0-37.0); MCV 94.9 fL (80.0-100.0); MEAN PLATELET VOLUME 11.1 fL (7.4-10.4); MONOCYTES 7.5 % (2-11); PLATELET COUNT 238 10x3/uL (130-400); RBC 3.91 10x6/uL (4.00-5.40); RDW 20.1 % (11.5-14.5); WBC 6.7 10x3/uL (4.8-10.8)
[2016-11-20 06:57] LABS: ANION GAP 8.6 mmol/L (8-16); CARBON DIOXIDE 35.8 mmol/L (21.0-32.0); CREATININE - SERUM 1.4 mg/dL (0.6-1.3); POTASSIUM - SERUM 3.4 mmol/L (3.5-5.1)
--- NOTE | 2016-11-20 07:10 | NUR ---
RECEIVED REPORT. ASSUMED CARE OF PATIENT. K+ PROVIDED BY [facility] NURSE AT THIS TIME PER ELECTROLYTE PROTOCOL. CALL LIGHT WITHIN REACH. DENIES NEEDS. RESP EVEN AND UNLABORED. NO DISTRESS.
[2016-11-20 08:00] VITALS: BP 158/91
[2016-11-20 12:50] VITALS: BP 154/88
--- NOTE | 2016-11-20 20:15 | NUR ---
PT SITTING UP IN CHAIR, AWAKE, ALERT, ORIENTED, DENIES ANY NEEDS. CONTINUE TO MONITOR CLOSELY.
--- NOTE | 2016-11-20 23:26 | NUR ---
PT ASSISTED BACK TO BED FROM CHAIR WITH MINIMAL ASSISTANCE. PT DENIES ANY NEEDS AT THIS TIME. CONTINUE TO MONITOR CLOSELY. BED LOW, CALL LIGHT IN REACH, SIDE RAILS X 2, HOB 20 DEGREES.
[2016-11-21 04:00] VITALS: BP 160/96
[2016-11-21 05:12] LABS: BASOPHILS 0 % (0-2); EOSINOPHILS 0 % (0-7); HEMATOCRIT 37.5 % (36.0-48.0); HEMOGLOBIN 11.7 g/dL (12-16); IMMATURE GRANULOCYTES 0.4 % (0-5); LYMPHOCYTES 6.9 % (15-50); MCH 28.7 pg (26.0-34.0); MCHC 31.2 g/dL (31.0-37.0); MEAN PLATELET VOLUME 11.7 fL (7.4-10.4); MONOCYTES 6.9 % (2-11); NEUTROPHILS 85.8 % (40-80); PLATELET COUNT 260 10x3/uL (130-400); RBC 4.07 10x6/uL (4.00-5.40); RDW 19.7 % (11.5-14.5); WBC 7.9 10x3/uL (4.8-10.8)
[2016-11-21 05:13] LABS: MCV 92.1 fL (80.0-100.0)
[2016-11-21 05:30] LABS: ANION GAP 10.2 mmol/L (8-16); CALCIUM 8.1 mg/dL (8.5-10.1); CARBON DIOXIDE 30.5 mmol/L (21.0-32.0); CREATININE - SERUM 1.2 mg/dL (0.6-1.3); POTASSIUM - SERUM 3.7 mmol/L (3.5-5.1)
--- NOTE | 2016-11-21 08:15 | NUR ---
PT RESTING IN BED WITH EYES OPEN CALL LIGHT IN REACH WILL MONITER
[2016-11-21 08:21] VITALS: BP 159/89
--- NOTE | 2016-11-21 10:22 | NUR ---
Rehab has been following this patient before transferring to the ICU. He remains in ICU on BIPAP. PT evaluated and signed off on 11/15/16. Rehab will no longer follow him. A new referral and PT eval can be ordered when he is medically stable. Giselle Wray RN Clinical Liaison, rehab
--- NOTE | 2016-11-21 10:23 | NUR ---
SITTING UP IN CHAIR HECTOR WELL. WILL CONTINUE TO MONITOR.
[2016-11-21 11:51] VITALS: BP 131/73
[2016-11-21] MEDS ORDERED: NICODERM C1 PATCH .1 TRANSDERM (12:43)
[2016-11-21] MEDS ORDERED: BROVANA15 MCG/2 M INH (12:43)
[2016-11-21] MEDS ORDERED: XOPENEX 0.0.63 MG/3 UPD (12:43)
[2016-11-21] MEDS ORDERED: ATROVENT 0.02%2.5 ML UPD (12:43)
[2016-11-21] MEDS ORDERED: LOVENOX40 MG/0.4 SC (12:46)
[2016-11-21] MEDS ORDERED: CALAN SR180 MG PO (12:46)
[2016-11-21] MEDS ORDERED: TOPROL XL25 MG PO (12:46)
[2016-11-21] MEDS ORDERED: LASIX INJ40 MG/4 ML IV (12:48)
[2016-11-21] MEDS ORDERED: SINGULAIR10 MG PO (12:49)
[2016-11-21] MEDS ORDERED: MIRALAX17 GM PO (12:49)
[2016-11-21] MEDS ORDERED: COLACE100 MG PO (12:49)
[2016-11-21] MEDS ORDERED: FLUTICASONE PRO16 GM NASAL (12:49)
[2016-11-21] MEDS ORDERED: PULMICORT0.5 MG/21 UPD (12:49)
[2016-11-21] MEDS ORDERED: PREDNISONE20 MG PO ×2 (12:50→13:26)
--- NOTE | 2016-11-21 13:18 | NUR ---
Patient Name: MATY DONALD Encounter No: [id number] : 1940 Primary Insurance: MEDICARE A & B Anticipated DC Date: 11-21-2016 Planned Disposition: Inpatient Rehab External Planned Provider: [facility] INPATIENT REHAB DCP follow-up note: CM SPOKE TO RG OF INPATIENT REHAB, THEY PLAN TO ACCEPT PT TODAY, IF STABLE FOR REHAB. PT NOTIFIED, IN AGREEMENT WITH DISCHARGE TO INPATIENT REHAB. IMPORTANT MESSAGE FROM MEDICARE PROVIDED AND DISCUSSED. NOTIFY [facility] INPATIENT REHAB WHEN DISCHARGE ORDERS ARE RECEIVED. [facility] INPATIENT REHAB TO CONTACT MED 2 NURSE WITH ROOM NUMBER WHEN READY TO ACCEPT PT AND NURSE REPORT. Kyle Valle, CASE MANAGEMENT
[2016-11-21 17:11] VITALS: BP 157/88
--- NOTE | 2016-11-21 18:00 | NUR ---
PT DISCHARGED TO REHAB VIA WHEELCHAIR REPORT CALLED TO [facility] DISCHARGE SUMMARY AND MEDS GIVEN TO REHAB NURSE PT WAS ON 6 LITERS O2 VIA OXIMIZER TOLERATED WELL
== END 2016-11-21 18:36 | DRG 291 ==
LOC: D.ER 17:20 → D.ICU 20:09 → D.M2 20:09
PROVIDERS: Emergency Medicine; Family Medicine; Internal Medicine Pulmonary Disease; Nurse Practitioner Acute Care; ADMIT Family Medicine Adult Medicine
PROC: 0T9B70Z Drainage of Bladder with Drainage Device, Via Natural or Artificial Opening (ICD-10-PCS; principal; 2016-11-09)
DX: I11.0 Hypertensive heart disease with heart failure (principal); J96.22 Acute and chronic respiratory failure with hypercapnia; J96.21 Acute and chronic respiratory failure with hypoxia; N39.0 Urinary tract infection, site not specified; F17.203 Nicotine dependence unspecified, with withdrawal; E03.9 Hypothyroidism, unspecified; J44.9 Chronic obstructive pulmonary disease, unspecified; Z91.81 History of falling; D50.8 Other iron deficiency anemias; I87.8 Other specified disorders of veins; B35.3 Tinea pedis; I50.33 Acute on chronic diastolic (congestive) heart failure; G47.33 Obstructive sleep apnea (adult) (pediatric); I48.2 Chronic atrial fibrillation

== ENCOUNTER 2016-11-21 19:56 | Inpatient (IN) | payer MEDICARE ==
[~2016-11-21] VITALS: Ht 167.6 cm; Wt 90.7 kg
[~2016-11-21 19:56] MED LIST: ASPIRIN EC81 M1; ATROVENT 0.02%2.5 ML UPD; BROVANA15 MCG/2 M INH; CALAN SR180 MG PO; CALAN SR240 MG PO; CARDURA4 MG PO; COLACE100 MG PO; ELIQUIS2.5 MG; FERROUS SULFAT325 MG PO; FLUTICASONE PRO16 GM NASAL; FUROSEMIDE40 MG; K-TAB10 MEQ PO; LASIX INJ40 MG/4 ML IV; LEVOTHYROXINE150 MCG; LEVOTHYROXINE175 MCG PO; LOTRISONE CREAM45 GM; LOVENOX40 MG/0.4 SC; MIRALAX17 GM PO; NAPROSYN500 MG PO; NICODERM C1 PATCH .1 TRANSDERM; OMEPRAZOLE20 M1 PO; PAXIL20 MG PO; PLAVIX75 MG; PREDNISONE20 MG PO; PULMICORT0.5 MG/21 UPD; SINGULAIR10 MG PO; TOPROL XL100 MG PO; TOPROL XL25 MG PO; ULTRAM50 MG PO; XOPENEX 0.0.63 MG/3 UPD
--- NOTE | 2016-11-21 20:00 | NUR ---
PT. IN BED WITH HOB UP FOR COMFORT AND IS WATCHING TV. EXPLAINED PROCESS FOR ADMISSION AND PT. VERBALIZED UNDERSTANDING AND SAID SHE WOULD WATCH TV UNTIL I CAME IN FOR ADMISSION PAPERWORK. CALL LIGHT WITHIN REACH AND OXIMIZER AT 6L/MIN VIA N/C WITHOUT ANY S/S DISTRESS OBSERVED.
[2016-11-21 23:54] VITALS: BP 140/53; BMI 32.3
--- NOTE | 2016-11-22 02:40 | NUR ---
ASSISTED PT. TO BR TO URINATE AND SHE CHANGED HER BRIEF AND I CHANGED HER BLUE PAD SHE HAD LEAKED URINATE ONTO IT. BACK TO BED AND POSITIONED TO COMFORT AND HER OXIMIZER REPLACED AND IT CONTINUES TO BE AT 6L/MIN VIA N/C. NO OTHER VOICED NEEDS AND CALL LIGHT WITHIN REACH.
--- NOTE | 2016-11-22 03:00 | NUR ---
PT. IN BED WITH HOB UP FOR COMFORT LYING ON HER RIGHT SIDE. EYES CLOSED AND RESP. EVEN. O2 ON VIA OXIMIZER AT 6L/MIN. NO S/S DISTRESS OBSERVED. CALL LIGHT WITHIN REACH.
[2016-11-22 05:39] LABS: BASOPHILS 0 % (0-2); EOSINOPHILS 0.2 % (0-7); HEMATOCRIT 38.2 % (36.0-48.0); HEMOGLOBIN 11.8 g/dL (12-16); IMMATURE GRANULOCYTES 0.4 % (0-5); LYMPHOCYTES 13.2 % (15-50); MCH 28.4 pg (26.0-34.0); MCHC 30.9 g/dL (31.0-37.0); MCV 91.8 fL (80.0-100.0); MEAN PLATELET VOLUME 10.9 fL (7.4-10.4); NEUTROPHILS 78.2 % (40-80); PLATELET COUNT 240 10x3/uL (130-400); RBC 4.16 10x6/uL (4.00-5.40); RDW 19.8 % (11.5-14.5); WBC 8.3 10x3/uL (4.8-10.8)
[2016-11-22 05:48] LABS: CALCIUM 8.3 mg/dL (8.5-10.1); CARBON DIOXIDE 30.2 mmol/L (21.0-32.0); CREATININE - SERUM 1.1 mg/dL (0.6-1.3); POTASSIUM - SERUM 3.2 mmol/L (3.5-5.1)
--- NOTE | 2016-11-22 06:09 | NUR ---
PT. IN BED WITH HOB UP FOR COMFORT AND LYING ON HER RIGHT SIDE. EYES CLOSED AND RESP. EVEN. OXIMIZER AT 6L/MIN VIA N/C WITHOUT ANY S/S DISTRESS. CALL LIGHT WITHIN REACH.
--- NOTE | 2016-11-22 07:40 | NUR ---
ASSISTED TO BATHROOM WITH STANDBY ASSIST. DENIES PAIN.
[2016-11-22 08:00] VITALS: BP 130/65
--- NOTE | 2016-11-22 09:30 | NUR ---
PERFORMING ADL'S WITH OCCUPATIONAL THERAPY.
--- NOTE | 2016-11-22 11:30 | NUR ---
SITTING UP IN CHAIR WATCHING TV. DENIES PAIN. CALL LIGHT IN REACH
--- NOTE | 2016-11-22 12:07 | NUR ---
SITTING UP IN CHAIR EATING LUNCH.
--- NOTE | 2016-11-22 12:24 | NUR ---
PATIENT ADMITTED TO REHAB FROM ACUTE FLOOR. DR. CELINE MADERA FROM [facility] IS PATIENT PCP. [facility] [place] IS HER PHARMACY. SHE HAS O2 AND A ROLLING WALKER AT HOME. FAMILY IS LOOKING AT FACILITIES IN [place] IF UNABLE TO RETURN HOME. WILL CONTINUE TO FOLLOW WITH PATIENT
--- NOTE | 2016-11-22 13:40 | NUR ---
IN GYM WITH PHYSICAL THERAPY.
[2016-11-22 14:22] VITALS: Ht 167.6 cm; Wt 90.7 kg
--- NOTE | 2016-11-22 15:15 | NUR ---
IN GYM WITH PHYSICAL THERAPY
--- NOTE | 2016-11-22 17:24 | NUR ---
SITTING UP IN CHAIR EATING DINNER. PLEASANT AFFECT. DENIES PAIN. STILL ON 6L OXYMIZER. CALL LIGHT IN REACH
--- NOTE | 2016-11-22 19:00 | NUR ---
SITTING UP AT BEDSIDE, WATCHING TV. NO C/O AT THIS TIME.
--- NOTE | 2016-11-22 21:40 | NUR ---
REMAINS SEATED AT BEDSIDE IN RECLINER. CURRENTLY RECEIVING R/T UPDRAFT. DENIES NEEDS.
[2016-11-22 23:00] VITALS: BP 133/70
--- NOTE | 2016-11-22 23:00 | NUR ---
ASSISTED PATIENT TO TRANSFER TO BED AND MOVED RECLINER AWAY FROM BED. VS AND ASSESSMENT COMPLETE. GAVE PATIENT SCHEDULED HS MEDS PO. D/C'D 20GA S/L FROM LEFT HAD IT WAS OVER-AGE AND DRESSING WAS PEELING UP. PATIENT WANTS TO CONTINUE AMBULATING WITH R/W TO BR UNASSISTED AND DOES NOT WANT A BED ALARM. HAD HER SIGN BED ALARM WAIVER, BUT REMINDED HER THAT IF SHE WANTS AN ASSIST TO BR OR DOES NOT THINK SHE WILL BE SAFE TRANSFERRING OR AMBULATING, WE WOULD LIKE HER TO CALL FOR ASSIST. SAID SHE WILL DO SO.
--- NOTE | 2016-11-23 02:35 | NUR ---
RESTING QUIETLY IN BED, SUPINE. HOB AT 0 DEGREES. APPEARS COMFORTABLE.
--- NOTE | 2016-11-23 03:05 | NUR ---
PATIENT AWAKE. C/O PAIN LEVEL OF 8/10 IN RIGHT HIP AND LATERAL THIGH. OBTAINED ORDER AND GAVE PATIENT TYLENOL 500MG PO.
--- NOTE | 2016-11-23 03:40 | NUR ---
RESTING QUIETLY IN BED, EYES CLOSED.
--- NOTE | 2016-11-23 04:40 | NUR ---
CONTINUES IN BED, RESTING WITH EYES CLOSED. RESPIRATIONS ARE QUIET AND UNLABORED.
--- NOTE | 2016-11-23 06:15 | NUR ---
GAVE PATIENT SCHEDULED PO MEDS.
--- NOTE | 2016-11-23 07:05 | NUR ---
RESTING QUIETLY IN BED CALL LIGHT IN REACH
[2016-11-23 08:00] VITALS: BP 126/64
--- NOTE | 2016-11-23 09:30 | NUR ---
PATIENT SITTING UP IN WHEELCHAIR IN ROOM. WATCHING T.V. ALERT/ORIENT X4. PATIENT HAS SIGNED A BED/CHAIR ALARM WAVIOR. PATIENT HAS A STEADY GAIT WALKING WITH WHEELED WALKER IN ROOM.
--- NOTE | 2016-11-23 12:50 | NUR ---
CARE TEAM MEETING: SON ATTENDED MEETING. SHE WILL BE RA AT NEXT MEETING. PLANS ARE FOR PATIENT TO DISCHARGE HOME WITH FAMILY.WILL CONTIUNE TO FOLLOW WITH PATIENT
--- NOTE | 2016-11-23 13:49 | NUR ---
PATIENT IS INCONTINANT OF URINE. BRIEFS WORN. DRESSING TO BOTTOM CHANGED. ONE AREA ON LEFT SIDE OF BOTTOM EXCORATION. TWO AREAS ON RIGHT SIDE EXCORATION. COVERED WITH MEPILEX DRESSING.
--- NOTE | 2016-11-23 14:46 | NUR ---
PATIENT DOWN IN REHAB ROOM. WORKING WITH OCCUPATIONAL THERPAIST. DENIES ANY PAIN/DISC AT THIS TIME
--- NOTE | 2016-11-23 16:13 | NUR ---
DAUGHTER IN PATIENTS ROOM. CUTTING HAIR.
[2016-11-23 19:30] VITALS: BP 145/70
--- NOTE | 2016-11-23 19:40 | NUR ---
PT SIT UP IN BED AND WATCH TV.
--- NOTE | 2016-11-23 20:30 | NUR ---
PATIENT AWAKE. DENIES NEEDS. TOLD HER I WAS REMOVING THE IV PUMP FROM HER ROOM FOR ANOTHER PATIENT.
--- NOTE | 2016-11-23 23:20 | NUR ---
PT REST IN BED, EYE OPEN, DENISED NEEDS.
--- NOTE | 2016-11-24 08:15 | NUR ---
SITTING ON SIDE OF BED EATING BREAKFAST. INCONT OF URINE. SOB WITH MINIMAL EXERTION. OXYGEN IN USE. DENIES PAIN.
--- NOTE | 2016-11-24 13:31 | NUR ---
SITTING UP IN ROOM WATCHING TV. DENIES PAIN OR NEEDS.
[2016-11-24 13:33] VITALS: BP 126/72
--- NOTE | 2016-11-24 18:03 | NUR ---
SITTING UP IN W/C EATING SUPPER AND VISITING WITH SISTERS.
--- NOTE | 2016-11-24 18:35 | NUR ---
RESTING QUIETLY IN BED. CALL LIGHT IN REACH
--- NOTE | 2016-11-24 19:30 | NUR ---
PT IN BED WITH HOB UP FOR COMFORT. TALKING ON CELLPHONE. ALERT & ORIENTED. TELEMETRY. OXIMIZER @ 5L. NO IV. BED WAIVER. STRES INCONTINENCE. BED IN LOWEST POSITION AND CALL LIGHT WITHIN REACH.
[2016-11-24 19:43] VITALS: BP 104/71
--- NOTE | 2016-11-24 23:30 | NUR ---
PT IN BED WITH HOB UP FOR COMFORT. WATCHING TV. BED IN LOWEST POSITION AND CALL LIGHT WITHIN REACH.
--- NOTE | 2016-11-25 03:18 | NUR ---
PT RESTING QUIETLY, RESPIRATIONS REGULAR AND UNLABORED, APPEARS TO BE SLEEPING ON BACK, NO S/S OF ACUTE DISTRESS.
[2016-11-25 06:37] LABS: BASOPHILS 0 % (0-2); EOSINOPHILS 0.4 % (0-7); HEMATOCRIT 40.2 % (36.0-48.0); HEMOGLOBIN 12.5 g/dL (12-16); IMMATURE GRANULOCYTES 0.2 % (0-5); LYMPHOCYTES 19.8 % (15-50); MCH 28.6 pg (26.0-34.0); MCHC 31.1 g/dL (31.0-37.0); MEAN PLATELET VOLUME 12.6 fL (7.4-10.4); MONOCYTES 6.6 % (2-11); PLATELET COUNT 264 10x3/uL (130-400); RBC 4.37 10x6/uL (4.00-5.40); RDW 20.1 % (11.5-14.5); WBC 9.1 10x3/uL (4.8-10.8)
[2016-11-25 06:38] LABS: CALC OSMOLALITY 238 mosm/kg (275-300); CALCIUM 8.6 mg/dL (8.5-10.1); CHLORIDE - SERUM 91 mmol/L (98-107); CREATININE - SERUM 1.2 mg/dL (0.6-1.3); GLUCOSE 106 mg/dL (74-106); POTASSIUM - SERUM 3.5 mmol/L (3.5-5.1); UREA NITROGEN 28 mg/dL (7-18); eGFR NON AFRICAN AMERICAN 46 mL/min (90-120)
[2016-11-25 07:05] LABS: SODIUM 115 mmol/L (136-145)
[2016-11-25 07:54] VITALS: BP 130/72
--- NOTE | 2016-11-25 08:00 | NUR ---
SITTING UP ON SIDE OF BED EATING BREAKFAST. OXYMIZER IN USE AT 5L NC. CALL LIGHT IN REACH
--- NOTE | 2016-11-25 08:05 | NUR ---
SITTING ON SIDE OF BED EATING BREAKFAST. OXYGEN IN PLACE
--- NOTE | 2016-11-25 09:01 | NUR ---
DR BAILEY ON FLOOR. MADE HIM AWARE OF NA+ LEVEL THIS MORNING
--- NOTE | 2016-11-25 12:27 | NUR ---
IN THERAPY ROOM
--- NOTE | 2016-11-25 15:15 | NUR ---
Nutrition Follow Up: Pt is eating 83% meal avg on a Merged with [facility] Soft diet with thin liquids. +BM 11/24/16. Labs reviewed. Meds noted. Rec continue current diet. RD following.
--- NOTE | 2016-11-25 15:54 | NUR ---
SITTING IN W/C IN ROOM. DENIES NEEDS. CALL LIGHT IN REACH
--- NOTE | 2016-11-25 18:31 | NUR ---
SITTING UP IN W/C IN ROOM WATCHING TV.
--- NOTE | 2016-11-25 20:00 | NUR ---
PT IN BED WITH HOB UP FOR COMFORT. FAMILY AT BEDSIDE. ALERT & ORIENTED. TELEMETRY. OXIMIZER @ 5L. NO IV. BED WAIVER. INCONTINENT. BUTTOCKS MEPILEX. BED IN LOWEST POSITION AND CALL LIGHT WITHIN REACH.
--- NOTE | 2016-11-25 22:49 | NUR ---
PT. IN BED WITH HOB UP FOR COMFORT AND HER OXIMIZER O2 AT 5L/MIN WITHOUT S/S DISTRESS. EYES ARE CLOSED AND RESP. EVEN AND HER CALL LIGHT IS WITHIN REACH.
--- NOTE | 2016-11-26 02:49 | NUR ---
PT IN BED WITH HOB UP FOR COMFORT. EYES CLOSED. CHEST RISING AND FALLING. BED IN LOWEST POSITION AND CALL LIGHT WITHIN REACH.
--- NOTE | 2016-11-26 03:35 | NUR ---
PT IN BED WITH HOB UP FOR COMFORT. EYES CLOSED. RESPIRATIONS EVEN & UNLABORED. BED IN LOWEST POSITION AND CALL LIGHT WITHIN REACH.
[2016-11-26 06:14] LABS: BASOPHILS 0 % (0-2); EOSINOPHILS 0.2 % (0-7); HEMATOCRIT 36.8 % (36.0-48.0); HEMOGLOBIN 11.3 g/dL (12-16); IMMATURE GRANULOCYTES 0.4 % (0-5); LYMPHOCYTES 18.9 % (15-50); MCH 28.3 pg (26.0-34.0); MCHC 30.7 g/dL (31.0-37.0); MCV 92.2 fL (80.0-100.0); MEAN PLATELET VOLUME 12.2 fL (7.4-10.4); MONOCYTES 7.8 % (2-11); NEUTROPHILS 72.7 % (40-80); PLATELET COUNT 220 10x3/uL (130-400); RBC 3.99 10x6/uL (4.00-5.40); RDW 20.3 % (11.5-14.5); WBC 8.4 10x3/uL (4.8-10.8)
[2016-11-26 06:31] LABS: ANION GAP 10.1 mmol/L (8-16); CALCIUM 8.3 mg/dL (8.5-10.1); CARBON DIOXIDE 32.6 mmol/L (21.0-32.0); CREATININE - SERUM 1.1 mg/dL (0.6-1.3); POTASSIUM - SERUM 3.7 mmol/L (3.5-5.1)
[2016-11-26 08:00] VITALS: BP 139/73
--- NOTE | 2016-11-26 08:00 | NUR ---
SHIFT ASSMT COMPLETED.DENIES NEEDS.SITTING UP ON SIDE OF BED FOR BREAKFAST.O2 ON AND PATENT.
--- NOTE | 2016-11-26 16:00 | NUR ---
SITTING ON SIDE OF BED.DENIES NEEDS.
--- NOTE | 2016-11-26 19:30 | NUR ---
PT SIT UP IN BED AND WATCH TV.
--- NOTE | 2016-11-26 22:52 | NUR ---
PT SIT UP IN BED AND WATCH TV.
--- NOTE | 2016-11-26 23:45 | NUR ---
ASSISTED PT TO BATHROOM, STATE HAS LOOSE STOOL THREE TIMES TODAY, INCLUDE THIS TIME, REPORT TO CHARGE NURSE, WILL CONTINUE MONITOR CLOSELY.
[2016-11-26 23:56] VITALS: BP 119/76
--- NOTE | 2016-11-27 03:05 | NUR ---
SITTING UP ON LEFT BEDSIDE. NO C/O AT THIS TIME.
[2016-11-27 08:00] VITALS: BP 123/79
--- NOTE | 2016-11-27 20:20 | NUR ---
SIT UP IN BED AND WATCH TV.
--- NOTE | 2016-11-27 23:06 | NUR ---
ASSISTED PT WITH BEDSIDE COMMODE, AND APPLIED SKIN CALMOSETIN SKIN PROTECTION IN BUTTOCK AREA.
[2016-11-27 23:29] VITALS: BP 135/68
--- NOTE | 2016-11-28 00:15 | NUR ---
RESTING IN BED, EYES CLOSED. APPEARS COMFORTABLE.
--- NOTE | 2016-11-28 03:34 | NUR ---
REST QUIETLY IN BED, EYE CLOSE, CL WITHIN REACH.
--- NOTE | 2016-11-28 08:00 | NUR ---
LAYING IN BED QUIETLY. EYES CLOSED. CALL LIGHT IN REACH
[2016-11-28 09:13] VITALS: BP 120/62
--- NOTE | 2016-11-28 14:35 | NUR ---
SITTING IN ROOM WATCHING TV. OXYGEN STILL IN USE AT 4L VIA OXYMIZER.
--- NOTE | 2016-11-28 19:11 | NUR ---
SITTING ON SIDE OF BED WATCHING TV. CALL LIGHT IN REACH
--- NOTE | 2016-11-28 20:00 | NUR ---
PT IN BED WITH HOB UP FOR COMFORT. ALERT & ORIENTED. TELEMTRY. INCONTINENT AT TIMES. OXIMIZER @ 4L. NO IV. BED WAIVER. MEDS WHOLE. X3 SHEERING SPOTS ON BUTTOCKS. BED IN LOWEST POSITION AND CALL LIGHT WITHIN REACH.
[2016-11-28 20:07] VITALS: BP 127/58
--- NOTE | 2016-11-29 | NUR ---
PT IN BED WITH HOB UP FOR COMFORT. EYES CLOSED. CHEST RISING AND FALLING. BED IN LOWEST POSITION AND CALL LIGHT WITHIN REACH.
--- NOTE | 2016-11-29 01:00 | NUR ---
RESTING QUIETLY IN BED, EYES CLOSED.
--- NOTE | 2016-11-29 03:50 | NUR ---
PT IN BED WITH HOB UP FOR COMFORT. EYES CLOSED. RESP. EVEN. BED IN LOWEST POSITION AND CALL LIGHT WITHIN REACH.
--- NOTE | 2016-11-29 07:16 | NUR ---
RESTING QUIETLY IN BED WITH EYES CLOSED. CALL LIGHT IN REACH
[2016-11-29 08:50] VITALS: BP 119/56
--- NOTE | 2016-11-29 12:38 | NUR ---
SITTING ON BED IN ROOM EATING LUNCH. DENIES PAIN. INCONT OF URINE.
[2016-11-29 19:15] VITALS: BP 138/75
--- NOTE | 2016-11-29 19:15 | NUR ---
PT IN BED WITH HOB UP FOR COMFORT. ALERT & ORIENTED. WATCHING TV. TELEMTRY. OXIMIZER @ 4L. NO IV. BED WAIVER. MEDS WHOLE. X3 SHEERING DIME SIZED SPOTS ON BUTTOCKS. INCONTINENT AT TIMES. BED IN LOWEST POSITION AND CALL LIGHT WITHIN REACH.
--- NOTE | 2016-11-29 23:15 | NUR ---
PT IN BED WITH HOB UP FOR COMFORT. EYES CLOSED. CHEST RISING AND FALLING. BED IN LOWEST POSITION AND CALL LIGHT WITHIN REACH.
--- NOTE | 2016-11-29 23:15 | NUR ---
PT IN BED WITH HOB UP FOR COMFORT. EYES CLOSED. CHEST RISING AND FALLING. BED IN LOWEST POSITION AND CALL LIGHT WITHIN REACH.
--- NOTE | 2016-11-30 03:50 | NUR ---
SITTING UP IN W/C. SAYS SHE JUST RETURNED FROM [facility]. REEMPLACED HER OXYMIZER IN HER NARES I FOUND IT LYING ON HER BED.
[2016-11-30 06:50] LABS: BASOPHILS 0 % (0-2); EOSINOPHILS 0.8 % (0-7); HEMATOCRIT 37.6 % (36.0-48.0); HEMOGLOBIN 11.5 g/dL (12-16); IMMATURE GRANULOCYTES 0.2 % (0-5); LYMPHOCYTES 21.3 % (15-50); MCH 28.7 pg (26.0-34.0); MCHC 30.6 g/dL (31.0-37.0); MCV 93.8 fL (80.0-100.0); MONOCYTES 8.7 % (2-11); PLATELET COUNT 226 10x3/uL (130-400); RBC 4.01 10x6/uL (4.00-5.40); RDW 19.9 % (11.5-14.5); WBC 8.7 10x3/uL (4.8-10.8)
[2016-11-30 07:06] LABS: ANION GAP 9.6 mmol/L (8-16); CALCIUM 8.3 mg/dL (8.5-10.1); CARBON DIOXIDE 35.8 mmol/L (21.0-32.0); CREATININE - SERUM 1.1 mg/dL (0.6-1.3); POTASSIUM - SERUM 3.4 mmol/L (3.5-5.1)
--- NOTE | 2016-11-30 07:10 | NUR ---
INTRODUCED SELF TO PT, PT STATES NO NEW NEEDS AT THIS TIME, BERE CONTINUE TO MONITOR, CALL LIGHT WITHIN REACH.
[2016-11-30 08:24] VITALS: BP 122/66
--- NOTE | 2016-11-30 09:15 | NUR ---
MORNING MEDICATION GIVEN, PT TOLERATED WELL, WILL CONTINUE TO MONITOR, CALL LIGHT WITHIN REACH.
--- NOTE | 2016-11-30 13:28 | NUR ---
PT IN PHYSICAL THERAPY. WILL CONTINUE TO MONITOR.
--- NOTE | 2016-11-30 15:31 | NUR ---
SITTING UP IN WC.CL IN REACH.
--- NOTE | 2016-11-30 16:54 | NUR ---
PT SITTING UP IN CHAIR VISITING WITH DAUGHTER, PT STATES NO NEEDS AT THIS TIME, WILL CONTINUE TO MONITOR, CALL LIGHT WITHIN REACH.
--- NOTE | 2016-11-30 17:18 | NUR ---
PT STATES PAIN AT A 8, PAIN LOCATED IN SHOULDERS, HEAD, BACK, AND LEGS, PAIN MEDICATION GIVEN, WILL CONTINUE TO MONITOR, CALL LIGHT WITHIN REACH.
--- NOTE | 2016-11-30 17:52 | NUR ---
PT UP IN CHAIR EATING DINNER, PT STATES NO NEEDS AT THIS TIME, WILL CONTINUE TO MONITOR, CALL LIGHT WITHIN REACH.
[2016-11-30 19:00] VITALS: BP 102/54
--- NOTE | 2016-11-30 20:00 | NUR ---
PT. IN BED LYING ON HER RIGHT SIDE WITH EYES CLOSED AND RESP. EVEN. O2 ON VIA N/C AT 4L/MIN. ASSESSMENT COMPLETED. NO VOICED NEEDS. CALL LIGHT WITHIN REACH.
--- NOTE | 2016-11-30 23:26 | NUR ---
PT. IN BED WITH HOB UP FOR COMFORT AND IS WATCHING TV. O2 AT 2L/MIN VIA N/C WITHOUT S/S DISTRESS OBSERVED. VERIFIED WITH R.T. PT'S RATE OF O2 AND IT IS TO BE AT 2L/MIN. NO VOICED NEEDS AT THIS TIME AND HER CALL LIGHT IS WITHIN REACH.
--- NOTE | 2016-12-01 03:21 | NUR ---
PT. IN BED WITH HOB UP FOR COMFORT WITH EYES CLOSED AND RESP. EVEN. CALL LIGHT WITHIN REACH.
--- NOTE | 2016-12-01 06:15 | NUR ---
PT. UP TO BR AGAIN UPON MY ENTERING ROOM. PT. DENIES ANY NEEDS AFTER GIVING HER THE MORNING MEDICATIONS. CALL LIGHT WITHIN REACH. PT. REMAINS IN W/C UPON MY LEAVING ROOM SHE WANTS TO SIT UP FOR AWHILE.
--- NOTE | 2016-12-01 08:00 | NUR ---
PATIENT ALERT/ORIENT. SITTING UP IN WHEELCHAIR TO EAT BREAKFAST. TELEMETRY IN PLACE. OXYGEN ON AT 2L PER N/C. CALL LIGHT WITHIN REACH. VOICES NO NEEDS AT THIS TIME
[2016-12-01 08:36] VITALS: BP 134/66
[2016-12-01] MEDS ORDERED: LASIX40 MG PO (08:43)
--- NOTE | 2016-12-01 09:51 | NUR ---
PATIENT IN REHAB ROOM. WORKING WITH PHYSICAL THERAPIST. DENIES ANY PAIN/DISC AT THIS TIME
--- NOTE | 2016-12-01 12:54 | NUR ---
PT SITTING UP IN CHAIR RESTING, RESPIRATIONS EVEN, CALL LIGHT IN REACH.
--- NOTE | 2016-12-01 12:59 | NUR ---
PT STATES PAIN AT A 5, PAIN LOCATED IN NECK AND LEGS, PAIN MED GIVEN, WILL CONTINUE TO MONITOR, CALL LIGHT WITHIN REACH.
--- NOTE | 2016-12-01 13:37 | NUR ---
Nutrition Follow Up: Pt reported that her appetite was good. Pt is eating 92% meal avg on an [facility] soft diet with thin liquids. +BM 12/01/16. No new wt to assess. Labs reviewed. Meds noted including Lasix. Rec continue current diet. RD following.
--- NOTE | 2016-12-01 13:39 | NUR ---
SITTING UP IN WC.CL IN REACH.
--- NOTE | 2016-12-01 18:29 | NUR ---
PT SITTING UP IN CHAIR WATCHING TV, PT STATES NO NEW NEEDS AT THIS TIME, WILL CONTINUE TO MONITOR, CALL LIGHT WITHIN REACH.
[2016-12-01 20:00] VITALS: BP 127/64
--- NOTE | 2016-12-01 22:10 | NUR ---
SIT UP IN BED AND EAT SNACK.
--- NOTE | 2016-12-02 01:32 | NUR ---
RESTING QUIETLY IN BED, EYE CLOSE, BED LOW, CALL LIGHT WITHIN.
--- NOTE | 2016-12-02 03:16 | NUR ---
ASSISTED PT TO BATHROOM AND BACK TO BED.
--- NOTE | 2016-12-02 05:58 | NUR ---
PT AWAKE, TOLERATED BLOOD DRAW WITHOUT DIFFICULTY. DENIES PAIN, NO S/S OF ACUTE DISTRESS.
[2016-12-02 06:38] LABS: BASOPHILS 0.1 % (0-2); EOSINOPHILS 0.9 % (0-7); HEMATOCRIT 36.7 % (36.0-48.0); HEMOGLOBIN 11.4 g/dL (12-16); IMMATURE GRANULOCYTES 0.3 % (0-5); LYMPHOCYTES 17.8 % (15-50); MCH 28.9 pg (26.0-34.0); MCHC 31.1 g/dL (31.0-37.0); MCV 93.1 fL (80.0-100.0); MEAN PLATELET VOLUME 12.9 fL (7.4-10.4); MONOCYTES 11.1 % (2-11); NEUTROPHILS 69.8 % (40-80); PLATELET COUNT 201 10x3/uL (130-400); RBC 3.94 10x6/uL (4.00-5.40); RDW 19.4 % (11.5-14.5); WBC 7.5 10x3/uL (4.8-10.8)
[2016-12-02 06:57] LABS: ANION GAP 11.9 mmol/L (8-16); CALCIUM 8.8 mg/dL (8.5-10.1); CARBON DIOXIDE 33.1 mmol/L (21.0-32.0); CREATININE - SERUM 1.2 mg/dL (0.6-1.3)
--- NOTE | 2016-12-02 08:00 | NUR ---
SHIFT ASSMT COMPLETED.DENIES NEEDS.PLANS TO DC HOME TODAY.
[2016-12-02 08:53] VITALS: BP 143/68
--- NOTE | 2016-12-02 11:17 | NUR ---
PATIENT DISCHARGING HOME WITH FAMILY. [facility] WILL FOLLOW WITH PATIENT AT HOME. PATIENT WILL PURCHASE A BSC. DR. CELINE MILLER 12/08/16 @ 11:15. PATIENT CHOICE FORM FOR HOME HEALTH AND [facility] FORM SIGNED, EXPLAINED AND FILED IN CHART. ORDERS HAVE BEEN FAXED WITH CONFORMATION RECIEVED
--- NOTE | 2016-12-02 12:00 | NUR ---
SITTING UP EATING SUPPER.
--- NOTE | 2016-12-02 13:30 | NUR ---
REVIEWED MEDS WITH PT AND DAUGHTER.CALLED NEEDED MEDS INTO PHARMACY..INSTRUCTED ON ARRIVAL TO HOME CALL BACK AND REPORT DME CO FOR [employer] EQUIPMENT.DC'D IN STABLE CONDITION TO HOME.
--- NOTE | 2016-12-02 16:28 | NUR ---
SRINI FAXED TO [employer] [facility] FOR NEBULIZER AND MEDICATIONS FAXED TO WITH CONFORMATION RECIEVED
== END 2016-12-02 13:15 | disposition home health service (06) | DRG 190 ==
LOC: D.REHAB 19:56
PROVIDERS: ADMIT Emergency Medicine
DX: J44.9 Chronic obstructive pulmonary disease, unspecified (principal); I50.33 Acute on chronic diastolic (congestive) heart failure; J96.21 Acute and chronic respiratory failure with hypoxia; N39.0 Urinary tract infection, site not specified; L03.116 Cellulitis of left lower limb; L03.115 Cellulitis of right lower limb; F17.203 Nicotine dependence unspecified, with withdrawal; R13.11 Dysphagia, oral phase; J45.909 Unspecified asthma, uncomplicated; I48.91 Unspecified atrial fibrillation; E03.9 Hypothyroidism, unspecified; F32.9 Major depressive disorder, single episode, unspecified; I11.0 Hypertensive heart disease with heart failure; D50.9 Iron deficiency anemia, unspecified; Z91.81 History of falling

== ENCOUNTER 2017-03-28 10:43 | Outpatient (CLI) | payer MEDICARE, BC ==
[~2017-03-28 10:43] MED LIST changes: +LASIX40 MG PO
[2017-03-28] MEDS ORDERED: CALAN SR240 MG PO (11:06)
[2017-03-28] MEDS ORDERED: LEVOTHYROXINE200 MCG PO (11:08)
[2017-03-28] MEDS ORDERED: ZYLOPRIM100 MG PO (11:11)
[2017-03-28] MEDS ORDERED: INDOCIN25 MG PO (11:11)
[2017-03-28] MEDS ORDERED: CARDURA4 MG PO (11:12)
[2017-03-28] MEDS ORDERED: LANOXIN125 MCG PO (11:12)
[2017-03-28] MEDS ORDERED: BETAPACE 80 MG80 MG PO (11:12)
[2017-03-28] MEDS ORDERED: PLAVIX75 MG PO (11:13)
[2017-03-28] MEDS ORDERED: PAXIL20 MG PO (11:13)
[2017-03-28] MEDS ORDERED: GLUCOTROL XL 5 M5 MG PO (11:14)
[2017-03-28] MEDS ORDERED: ULTRAM50 MG PO (11:15)
[2017-03-28 11:24] VITALS: BP 150/44; BMI 27.9
[2017-03-28 11:25] LABS: BASOPHILS 0.1 % (0-2); EOSINOPHILS 0.7 % (0-7); HEMOGLOBIN 9.3 g/dL (12-16); IMMATURE GRANULOCYTES 0.1 % (0-5); LYMPHOCYTES 7.8 % (15-50); MCH 28.9 pg (26.0-34.0); MCV 93.2 fL (80.0-100.0); MEAN PLATELET VOLUME 11.1 fL (7.4-10.4); MONOCYTES 10.6 % (2-11); NEUTROPHILS 80.7 % (40-80); PLATELET COUNT 225 10x3/uL (130-400); RBC 3.22 10x6/uL (4.00-5.40); RDW 14.6 % (11.5-14.5); WBC 9.8 10x3/uL (4.8-10.8)
[2017-03-28 11:26] VITALS: BP 150/44; BMI 27.9
[2017-03-28 11:36] LABS: ANION GAP 15.9 mmol/L (8-16); CALCIUM 9.1 mg/dL (8.5-10.1); CARBON DIOXIDE 26.3 mmol/L (21.0-32.0); CREATININE - SERUM 1.2 mg/dL (0.6-1.3); POTASSIUM - SERUM 4.2 mmol/L (3.5-5.1)
[2017-03-28 11:49] LABS: INR 1.13 (0.85-1.17); PROTIME 14.3 SECONDS (11.6-15.0)
[2017-03-28] MEDS ORDERED: ELIQUIS2.5 MG PO (12:18)
--- NOTE | 2017-03-28 12:46 | NUR ---
1155 DR CARRANZA NOTIFIED PT NOT TAKING ELIQUIS, HAS NOT HAD THIS MEDICATION FILLED SINCE LATE SEPTEMBER. VERIFIED WITH PT'S PHARMACY. 1220 DR CARRANZA HERE ROUNDING ON PT, PROCEDURE CANCELLED FOR TODAY. NEW ORDERS RECEIVED. 1225 L[address]MIL[address] PACE, RN VERIFIED WITH DR CARRANZA THAT PT IS TO STOP PLAVIX 1230 DC INSTRUCTIONS REVIEWED WITH PT AND FAMILY. PT IS TO RESTART ELIQUIS 2.5 MG TABLETS TWICE DAILY, PRESCRIPTION HAS BEEN CALLED TO [facility] IN [place]. PT IS TO STOP TAKING PLAVIX TABLETS. PT IS TO FOLLOW UP WITH DR CARRANZA IN [place] OFFICE ON March AT 1:45 PM. PT VERBLAIZES UNDERSTANDING. IV HAS BEEN DC'D WITH [facility] INTACT. PT ESCORTED TO PRIVATE AUTO VIA WC WITH FAMILY DRIVING HER HOME.
== END 2017-03-28 12:30 | disposition home or self-care (01) ==
LOC: D.CATH 10:43
PROVIDERS: Internal Medicine Cardiovascular Disease
DX: I48.91 Unspecified atrial fibrillation (principal); I10 Essential (primary) hypertension; R94.31 Abnormal electrocardiogram [ECG] [EKG]; Z01.812 Encounter for preprocedural laboratory examination